=== PATIENT | female | born 1995 | race Two or more races ===

== ENCOUNTER 2019-07-30 20:49 | Outpatient (CLI) | payer BC ==
[~2019-07-30] VITALS: Ht 157.5 cm; Wt 5.9 kg
[2019-07-30 21:29] LABS: MICROSCOPIC NOT IND
[2019-07-30 21:42] LABS: AMPHETAMINE SCREEN, URINE Negative (Negative); BARBITURATE SCREEN, URINE Negative (Negative); BENZODIAZEPINE SCREEN, URINE Negative (Negative); CANNABINOID SCREEN, URINE Negative (Negative); COCAINE SCREEN, URINE Negative (Negative); METHADONE SCREEN, URINE Negative (Negative); OPIATE SCREEN, URINE Negative (Negative)
[2019-07-30] MEDS ORDERED: NITROFURANTOIN (MACROBID) 100 MG CAPSULE PO ONE (22:00)
[2019-07-30] MEDS ORDERED: ONDANSETRON ODT 4 MG PO ONE (22:00)
[2019-07-30] MEDS ORDERED: ONDANSETRON ODT 4 MG ONE (22:05)
[2019-07-30] MEDS ORDERED: NITROFURANTOIN (MACROBID) 100 MG CAPSULE ONE (22:37)
== END 2019-07-30 23:18 | disposition home or self-care (01) ==
LOC: LDOP 20:49
PROVIDERS: ATTEND Obstetrics & Gynecology
DX: O42.912 Preterm premature rupture of membranes, unspecified as to length of time between rupture and onset of labor, second trimester (principal); R10.9 Unspecified abdominal pain; R11.10 Vomiting, unspecified; Z3A.20 20 weeks gestation of pregnancy
CPT/HCPCS: 80307; 81003; 87086; 99201; Q0162; 87077; G0463

== ENCOUNTER 2019-12-06 21:58 | Inpatient (IN) | payer BC ==
[~2019-12-06] VITALS: Ht 157.5 cm; Wt 75.0 kg
[2019-12-06] MEDS ORDERED: OXYTOCIN 30U/ 0.9% NaCL 500ML 500 ML IV PRN (22:22)
[2019-12-06] MEDS ORDERED: OXYTOCIN 30U/ 0.9% NaCL 500ML 500 ML IV ONE (22:22)
[2019-12-06] MEDS: D5%-LACTATED RINGERS 1,000 ML IV SCH (22:22)
[2019-12-06 22:27] VITALS: BP 109/61
[2019-12-06] MEDS ORDERED: PENICILLIN GK 5,000,000 UNITS in DEXTROSE 5% 100 ML IVPB ONE (22:30)
[2019-12-06] MEDS ORDERED: TERBUTALINE 1 MG/ML, 1ML SQ PRN (22:30)
[2019-12-06] MEDS ORDERED: FENTANYL PF 100 MCG/2ML IVPush PRN (22:30)
[2019-12-06] MEDS ORDERED: SODIUM CITRATE/CITRIC ACID 30 ML UDC PO PRN (22:30)
[2019-12-06] MEDS ORDERED: MISOPROSTOL 25 MCG TABLET PO PRN (22:30)
[2019-12-06] MEDS ORDERED: CALCIUM CARBONATE 500 MG TAB.CHEW PO PRN (22:30)
[2019-12-06] MEDS ORDERED: ONDANSETRON 2MG/ML, 2ML IVPush PRN (22:30)
[2019-12-06] MEDS ORDERED: FENTANYL PF 100 MCG/2ML IV PRN (22:30)
[2019-12-06] MEDS ORDERED: METOCLOPRAMIDE 5 MG/ML, 2ML IVPush PRN (22:30)
[2019-12-06] MEDS ORDERED: TERBUTALINE 1 MG/ML, 1ML IVPush PRN (22:30)
[2019-12-06] MEDS ORDERED: MISOPROSTOL 25 MCG TABLET ONE (22:42)
[2019-12-06] MEDS ORDERED: PLEASE ENTER HEIGHT AND WEIGHT MC SCH (23:00)
[2019-12-06] MEDS: LACTATED RINGERS 1,000 ML IV SCH (23:00)
[2019-12-06 23:07] LABS: BASOPHILS # (AUTO) 0.03 x10^3/uL (0-0.1); BASOPHILS % (AUTO) 0 % (0-1); EOSINOPHILS # (AUTO) 0.26 x10^3/uL (0-0.4); EOSINOPHILS % (AUTO) 2 % (1-7); LYMPHOCYTES # (AUTO) 2.09 x10^3/uL (1-3.4); LYMPHOCYTES % (AUTO) 19 % (22-44); MD NO; MEAN CORPUSCULAR HEMOGLOBIN 29.4 pg (27.0-34.8); MEAN CORPUSCULAR HGB CONC 33.4 g/dL (32.4-35.8); MEAN PLATELET VOLUME 7.9 fL (7.4-10.4); MONOCYTES # (AUTO) 0.73 x10^3/uL (0.2-0.8); MONOCYTES % (AUTO) 6 % (2-9); NEUTROPHILS # (AUTO) 8.21 x10^3/uL (1.8-6.8); NEUTROPHILS % (AUTO) 73 % (42-75); PLATELET COUNT 237 x10^3/uL (130-400); RED CELL DISTRIBUTION WIDTH 13.1 % (9.6-15.2)
[2019-12-07] MEDS ORDERED: NEWBORN KIT ONE (00:16)
[2019-12-07] MEDS ORDERED: OXYTOCIN 30U/ 0.9% NaCL 500ML 500 ML ONE ×2 (00:17→19:31)
[2019-12-07 02:00] VITALS: BP 114/68
[2019-12-07] MEDS: LACTATED RINGERS 1,000 ML IV SCH ×3 (03:01→10:20)
[2019-12-07] MEDS: PENICILLIN GK 2,500,000 UNITS in DEXTROSE 5% 100 ML IVPB SCH ×5 (03:01→18:30)
[2019-12-07] MEDS: D5%-LACTATED RINGERS 1,000 ML IV SCH ×3 (06:22→13:59)
[2019-12-07 07:30] VITALS: BP 117/57
[2019-12-07] MEDS ORDERED: FENTANYL PF 100 MCG/2ML ONE ×2 (09:11→18:19)
[2019-12-07] MEDS ORDERED: FENTANYL/BUPIV./NS/PF 250 ML EPIDCONT ONE (09:36)
[2019-12-07] MEDS ORDERED: BUPIVACAINE 0.25% ONE (09:36)
[2019-12-07] MEDS ORDERED: ONDANSETRON 2MG/ML, 2ML ONE (15:51)
[2019-12-07] MEDS ORDERED: ONDANSETRON 2MG/ML, 2ML IV PRN (19:30)
[2019-12-07] MEDS ORDERED: SIMETHICONE 80 MG CHEW TAB PO PRN (19:30)
[2019-12-07] MEDS ORDERED: OXYcodone/APAP 5/325MG TABLET PO PRN (19:30)
[2019-12-07] MEDS ORDERED: MISOPROSTOL 200 MCG TABLET PO PRN (19:30)
[2019-12-07] MEDS ORDERED: IBUPROFEN 600 MG TABLET PO PRN (19:30)
[2019-12-07] MEDS ORDERED: DOCUSATE 100 MG CAPSULE PO PRN (19:30)
[2019-12-07] MEDS ORDERED: ACETAMINOPHEN 325 MG TABLET PO PRN (19:30)
[2019-12-07] MEDS ORDERED: IBUPROFEN 800 MG TABLET ONE (19:31)
[2019-12-07] MEDS: OXYTOCIN 30U/ 0.9% NaCL 500ML 500 ML IV SCH (19:33)
[2019-12-07 20:50] VITALS: BP 101/65
[2019-12-08 01:30] VITALS: BP 99/60
[2019-12-08 03:25] LABS: MEAN CORPUSCULAR HEMOGLOBIN 29.5 pg (27.0-34.8); MEAN CORPUSCULAR HGB CONC 33.1 g/dL (32.4-35.8); MEAN CORPUSCULAR VOLUME 88.9 fL (80-100); MEAN PLATELET VOLUME 7.7 fL (7.4-10.4); PLATELET COUNT 188 x10^3/uL (130-400); RED BLOOD COUNT 3.59 x10^6/uL (3.82-5.3); RED CELL DISTRIBUTION WIDTH 13.5 % (9.6-15.2)
[2019-12-08 04:00] LABS: MD YES
[2019-12-08 04:02] LABS: <PLATELET ESTIMATE> ADEQUATE; <PLT MORPHOLOGY> NORMAL PLT MORPH; <RBC MORPHOLOGY> NORMAL; BAND#(MANUAL) 0.57 x10^3/uL; BANDS%(MANUAL) 3 % (0-7); LYMPH#(MANUAL) 1.52 x10^3/uL (1-3.4); LYMPHS% (MANUAL) 8 % (22-44); MONOS#(MANUAL) 0.57 x10^3/uL (0.3-2.7); MONOS% (MANUAL) 3 % (2-9); SEG#(MANUAL) 16.34 x10^3/uL (1.8-6.8); SEGS% (MANUAL) 86 % (42-75)
[2019-12-08] MEDS: OXYTOCIN 30U/ 0.9% NaCL 500ML 500 ML IV SCH ×2 (05:10→19:00)
[2019-12-08 05:15] VITALS: BP 96/60
[2019-12-08 07:35] VITALS: BP 104/69
[2019-12-08] MEDS: PRENATAL VIT/IRON/FA 1 EACH TABLET PO SCH (09:00)
[2019-12-08 12:00] VITALS: BP 108/73
[2019-12-08 16:00] VITALS: BP 100/72
[2019-12-08 20:08] VITALS: BP 107/69
[2019-12-09] MEDS: OXYTOCIN 30U/ 0.9% NaCL 500ML 500 ML IV SCH ×2 (01:10→11:10)
[2019-12-09 07:49] VITALS: BP 108/72
[2019-12-09] MEDS: PRENATAL VIT/IRON/FA 1 EACH TABLET PO SCH (07:59)
[2019-12-09] MEDS ORDERED: IBUP-1222 PO (11:12)
[2019-12-09] MEDS ORDERED: DIPH,PERTUSS(ACELL),TET VAC/PF NC IM-VACC ONE ×2 (11:16→11:30)
== END 2019-12-09 11:45 | disposition home or self-care (01) | DRG 807 ==
LOC: LDOP 21:58 → LDIP 22:18 → 2NW 12-07 20:50
PROVIDERS: ADMIT Obstetrics & Gynecology; ATTEND Obstetrics & Gynecology
PROC: 10E0XZZ Delivery of Products of Conception, External Approach (ICD-10-PCS; principal; 2019-12-07)
PROC: 3E0R3BZ Introduction of Anesthetic Agent into Spinal Canal, Percutaneous Approach (ICD-10-PCS; 2019-12-07)
PROC: 00HU33Z Insertion of Infusion Device into Spinal Canal, Percutaneous Approach (ICD-10-PCS; 2019-12-07)
PROC: 0UQMXZZ Repair Vulva, External Approach (ICD-10-PCS; 2019-12-07)
DX: O99.824 Streptococcus B carrier state complicating childbirth (principal); Z37.0 Single live birth; Z20.828 Contact with and (suspected) exposure to other viral communicable diseases; Z3A.38 38 weeks gestation of pregnancy; O70.0 First degree perineal laceration during delivery
CPT/HCPCS: 36415; J7121; 85025; 86592; 86850; 86900; 87635; 90715; G0378; J2405; J2540; J3010; J3490; J2590; J7120